=== PATIENT | female | born 1995 | race Caucasian/White ===

== ENCOUNTER → 2016-05-16 | Outpatient (CLI) | payer BC ==
--- NOTE | 2016-05-16 13:07 | DIAGNOSTIC IMAGING REPORT ---
RIGHT FOURTH FINGER 3 VIEWS HISTORY: RIGHT 4TH FINGER INJURY Right COMPARISON: None. FINDINGS: Soft tissue swelling at the right fourth finger most pronounced at the PIP joint. Questionable lucency through the head of the proximal phalanx. No radiopaque foreign bodies. IMPRESSION: Questionable lucency at the head of the proximal phalanx which may represent a nondisplaced fracture. Follow-up radiograph in 2 weeks can be used for confirmation. Soft tissue swelling at the PIP joint. Electronically signed by: Denys Short M.D. 05/16/2016 1:05 PM Dictated Date/Time: 05/16/2016 1:02 PM
== END | disposition home or self-care (01) ==
LOC: C.RDSM 11:30
PROVIDERS: ATTEND Physical Medicine & Rehabilitation Sports Medicine
DX: S62.629A Displaced fracture of middle phalanx of unspecified finger, initial encounter for closed fracture (principal); X58.XXXA Exposure to other specified factors, initial encounter

== ENCOUNTER → 2016-05-30 | Outpatient (CLI) | payer BC ==
--- NOTE | 2016-05-30 11:09 | DIAGNOSTIC IMAGING REPORT ---
RIGHT FOURTH FINGER 3 VIEWS CLINICAL HISTORY: Fourth finger fracture. FINDINGS: 3 views of the right fourth finger are compared to study dated 05/16/2016. The skeletal structures are well mineralized. No distracted fracture is seen. Questionable lucency in the head of the first proximal phalanx is unchanged from previous. Soft tissue swelling is present in the fourth finger, greatest around the proximal interphalangeal joint. IMPRESSION: 1. Soft tissue swelling with no distracted fracture identified. 2. A lucency through the head of the fourth proximal phalanx is unchanged from previous. A nondistracted fracture is not excluded. Clinical correlation will be required. Electronically signed by: Kike Jung M.D. 05/30/2016 11:07 AM Dictated Date/Time: 05/30/2016 11:05 AM
== END | disposition home or self-care (01) ==
LOC: C.RDSM 10:00
PROVIDERS: ATTEND Physical Medicine & Rehabilitation Sports Medicine
DX: M79.644 Pain in right finger(s) (principal)

== ENCOUNTER → 2016-06-22 | Outpatient (CLI) | payer BC ==
--- NOTE | 2016-06-22 09:37 | DIAGNOSTIC IMAGING REPORT ---
RIGHT FINGER(S) MIN 2 VIEWS CLINICAL HISTORY: RIGHT 4TH FINGER PAIN Right pain. Fracture. COMPARISON: 05/30/2016 DISCUSSION: Tiny avulsion base middle phalanx. Unchanging linear lucency distal aspect proximal phalanx. No evidence of dislocation There is no evidence for soft tissue swelling. IMPRESSION: Tiny avulsion base middle phalanx. Nondisplaced cortical lucency distal aspect proximal phalanx. Electronically signed by: Kyle Bernard M.D. 06/22/2016 9:35 AM Dictated Date/Time: 06/22/2016 9:34 AM
== END | disposition home or self-care (01) ==
LOC: C.RDSM 09:30
PROVIDERS: ATTEND Physical Medicine & Rehabilitation Sports Medicine
DX: S62.604A Fracture of unspecified phalanx of right ring finger, initial encounter for closed fracture (principal); X58.XXXA Exposure to other specified factors, initial encounter

== ENCOUNTER → 2016-07-13 | Outpatient (CLI) | payer BC ==
--- NOTE | 2016-07-13 09:14 | DIAGNOSTIC IMAGING REPORT ---
RIGHT FINGER(S) MIN 2 VIEWS CLINICAL HISTORY: RIGHT RING FINGER FX Right trauma. Pain. COMPARISON: 06/22/2016 DISCUSSION: Tiny avulsion base middle phalanx is again noted. Mild soft tissue edema. Bony alignment remains anatomic. There is no evidence for soft tissue swelling. IMPRESSION: Tiny avulsion base middle phalanx unchanged in the prior study Electronically signed by: Kyle Bernard M.D. 07/13/2016 9:13 AM Dictated Date/Time: 07/13/2016 9:06 AM
== END | disposition home or self-care (01) ==
LOC: C.RDSM 12:02
PROVIDERS: ATTEND Physician Assistant
DX: Z09 Encounter for follow-up examination after completed treatment for conditions other than malignant neoplasm (principal); S62.604A Fracture of unspecified phalanx of right ring finger, initial encounter for closed fracture; X58.XXXA Exposure to other specified factors, initial encounter

== ENCOUNTER → 2016-09-12 | Outpatient (CLI) | payer BC ==
--- NOTE | 2016-09-12 13:18 | DIAGNOSTIC IMAGING REPORT ---
RIGHT FINGER(S) MIN 2 VIEWS CLINICAL HISTORY: RIGHT 4TH DIGIT PAIN Right pain COMPARISON: 07/13/2016 DISCUSSION: Tiny avulsion base middle phalanx unchanged from the prior study. No new or interval finding. Mild soft tissue edema. Alignment is anatomic. IMPRESSION: Tiny avulsion base middle phalanx unchanged from the prior exam. No new or interval finding. Electronically signed by: Kyle Bernard M.D. 09/12/2016 1:17 PM Dictated Date/Time: 09/12/2016 1:15 PM
== END | disposition home or self-care (01) ==
LOC: C.RDSM 15:43
PROVIDERS: ATTEND Physician Assistant
DX: M79.644 Pain in right finger(s) (principal)